=== PATIENT | male | born 1990 | race American Indian/Alaskan Native ===

== ENCOUNTER 2018-01-06 02:30 | Emergency (ER) | payer OTHER ==
[2018-01-06] MEDS ORDERED: MAGNESIUM SULFATE 2GM/50ML 2 GM/50 ML BAG IV ONE (02:52)
[2018-01-06] MEDS ORDERED: PROVENTIL IH ONE ×2 (02:52→02:54)
[2018-01-06] MEDS ORDERED: NACL 0.9% 1000 ML 1,000 ML IV ONE (02:52)
[2018-01-06] MEDS ORDERED: SOLU-Medrol IV ONE (02:52)
--- NOTE | 2018-01-06 02:52 | Emergency Department Report ---
ED Shortness of Breath HPI - General Chief Complaint: Dyspnea/Respdistress Stated Complaint: AMS Time Seen by Provider: 01/06/18 02:45 Source: patient Mode of arrival: Stretcher Limitations: No Limitations - History of Present Illness MD Complaint: shortness of breath, "asthma attack" -: Sudden Severity: moderate Pain Scale: 5 Quality: aching Consistency: constant Improves With: nothing Worsens With: nothing Known History Of: asthma Associated Symptoms: chest pain Treatments Prior to Arrival: none - Related Data Home Oxygen Therapy: No Allergies Allergy/AdvReac Type Severity Reaction Status Date / Time No Known Allergies Allergy Verified 01/06/18 02:56 ED Review of Systems ROS: Stated complaint: AMS Other details as noted in HPI Comment: All other systems reviewed and negative Constitutional: denies: chills, fever Eyes: denies: eye pain ENT: denies: ear pain Respiratory: shortness of breath, SOB at rest Cardiovascular: chest pain Endocrine: no symptoms reported Gastrointestinal: denies: abdominal pain, nausea, vomiting, diarrhea Genitourinary: denies: urgency, dysuria Musculoskeletal: denies: back pain Skin: denies: rash, lesions Neurological: denies: headache, weakness, numbness Psychiatric: denies: anxiety, depression Hematological/Lymphatic: denies: easy bleeding, easy bruising ED Physical Exam - General Limitations: No Limitations General appearance: alert, in no apparent distress - Head Head exam: Present: atraumatic, normocephalic, normal inspection - Eye Eye exam: Present: normal appearance, PERRL, EOMI Pupils: Present: normal accommodation - ENT ENT exam: Present: normal exam, normal orophraynx, mucous membranes moist - Neck Neck exam: Present: normal inspection, full ROM. Absent: tenderness - Respiratory Respiratory exam: Present: respiratory distress, wheezes. Absent: rales, rhonchi, stridor - Cardiovascular Cardiovascular Exam: Present: regular rate, normal rhythm, normal heart sounds - GI/Abdominal GI/Abdominal exam: Present: soft, normal bowel sounds. Absent: distended, tenderness, guarding, rebound, rigid - Extremities Exam Extremities exam: Present: normal inspection, full ROM, normal capillary refill - Back Exam Back exam: Present: normal inspection, full ROM. Absent: tenderness - Neurological Exam Neurological exam: Present: alert, oriented X3, CN II-XII intact - Psychiatric Psychiatric exam: Present: normal affect, normal mood - Skin Skin exam: Present: warm, dry, intact, normal color. Absent: rash ED Course Vital Signs 01/06/18 01/06/18 01/06/18 03:31 03:38 03:45 Pulse Rate 73 87 Pulse Rate [ 74 Posterior Bilateral Throughout] Respiratory 12 16 Rate Respiratory 15 Rate [Posterior Bilateral Throughout] Blood Pressure 119/71 119/71 O2 Sat by Pulse 99 100 Oximetry 01/06/18 01/06/18 01/06/18 03:57 04:03 04:31 Pulse Rate 95 H Pulse Rate [ 89 Posterior Bilateral Throughout] Respiratory 16 12 Rate Respiratory 18 Rate [Posterior Bilateral Throughout] Blood Pressure 123/70 O2 Sat by Pulse 100 98 Oximetry 01/06/18 01/06/18 01/06/18 04:45 05:00 05:15 Pulse Rate 90 96 H 94 H Pulse Rate [ Posterior Bilateral Throughout] Respiratory 19 20 17 Rate Respiratory Rate [Posterior Bilateral Throughout] Blood Pressure 123/70 119/62 119/62 O2 Sat by Pulse 96 94 94 Oximetry 01/06/18 01/06/18 05:31 05:45 Pulse Rate 94 H 98 H Pulse Rate [ Posterior Bilateral Throughout] Respiratory 19 15 Rate Respiratory Rate [Posterior Bilateral Throughout] Blood Pressure 119/62 119/62 O2 Sat by Pulse 92 97 Oximetry - Reevaluation(s) Reevaluation #1: 01/06/18 06:16 Patient refused blood walk and further treatment in the emergency room. He stated he feels much better. He signed and left AGAINST MEDICAL ADVICE. I explained to him the risk he was taking and he verbalized understanding and still decided he wants to leave [place]. ED Medical Decision Making - EKG Data -: EKG Interpreted by Me EKG shows normal: sinus rhythm Rate: normal (70) - EKG Data When compared to previous EKG there are: previous EKG unavailable Interpretation: nonspecific ST-T wave kelly, other (Early Repolarization, No STEMI.) - Radiology Data Radiology results: report reviewed, image reviewed - Medical Decision Making Asthma Exacerbation. Critical care attestation.: If time is entered above; I have spent that time in minutes in the direct care of this critically ill patient, excluding procedure time. ED Disposition Clinical Impression: Asthma exacerbation Qualifiers: Asthma severity: moderate Asthma persistence: unspecified Qualified Code(s): J45.901 - Unspecified asthma with (acute) exacerbation Disposition: DC-07 LEFT AGAINST MED ADVICE Is pt being admited?: No Does the pt Need Aspirin: No Condition: Stable Forms: AMA Form Time of Disposition: 18:00
--- NOTE | 2018-01-06 03:40 | XRay Report ---
FINAL REPORT EXAM: XR CHEST 1V AP HISTORY: Asthma TECHNIQUE: A portable upright view the chest was submitted. There are no previous studies available for comparison. FINDINGS: The heart size and vascularity appear normal. The lungs are clear. Pleural fluid is not seen. The bones and soft tissues do not show any acute changes. IMPRESSION: No acute cardiopulmonary process.
[2018-01-06] MEDS ORDERED: LEVAQUIN 750MG/150ML 750 MG/150 ML BAG IV ONE (04:13)
[2018-01-06 05:59] VITALS: BP 119/62
== END 2018-01-06 05:57 | disposition left against medical advice (07) ==
LOC: ED 02:30
DX: J45.901 Unspecified asthma with (acute) exacerbation (principal)
CPT/HCPCS: 71045; 82803; 93005; 93010; 94640; 96365; 96367; 96372; 96375; 99284; J1956; J2930; J3475; J7030; 96361